=== PATIENT | female | born 1935 | race Caucasian/White ===

== ENCOUNTER 2025-06-16 13:24 | Emergency (ER) | payer MEDICARE, OTHER, SELFPAY ==
[2025-06-16] VITALS (7 sets, daily range): BP systolic 119–160; BP diastolic 69–110; PULSE 82–128; RESP 12–22; TEMP 36.5–36.6; O2SAT 91–100; BMI 29.7
--- NOTE | 2025-06-16 14:09 | RAD_ITS ---
PROCEDURE: CHEST 1 VIEW (PORTABLE) 06/16/2025 REASON FOR EXAM: CHEST PAIN Atrial fibrillation. TECHNIQUE: Frontal view of the chest. COMPARISON: None FINDINGS: Hardware: EKG electrodes are seen. Heart: Prior midline sternotomy. Lungs: Mild increased markings at the left lung base suggestive of either linear atelectasis and/or scarring. Bones: Degenerative changes are identified within the thoracic spine. Levoconvex scoliosis. Hiatal hernia. RAD/Chest 1 View (Portable) IMPRESSION: Linear atelectasis and/or scarring at the left lung base. Levoconvex scoliosis. Hiatal hernia. Reading Location: [place] [id number]
--- NOTE | 2025-06-16 14:09 | EKG12_ITS ---
Test Reason : CARDIOVERSION Blood Pressure : */* mmHG Vent. Rate : 87 BPM Atrial Rate : 87 BPM P-R Int : 186 ms QRS Dur : 88 ms QT Int : 388 ms P-R-T Axes : 58 50 69 degrees QTcB Int : 466 ms Normal sinus rhythm Nonspecific ST abnormality Abnormal ECG Confirmed by RANDI URIAS, VERITO ([id number]), editorial writer OCTAVIA ZARATE ([id number]) on 06/20/2025 6:29:38 AM Referred By: Confirmed By: VERITO BRYAN MD
--- NOTE | 2025-06-16 14:11 | EX.ED.DYSGE1 ---
HPI History of Present Illness Chief Complaint: Palpitations Informant: patient and family Narrative Narrative: Patient is an 89-year-old female with a history of dysrrhythmia and prior cardioversion, presenting with episodes of anxiety and dyspnea. - Reports intermittent anxiety and mild dyspnea this am, no chest pain or syncope/near-syncope. - Experienced an episode of anxiety and tachycardia this morning while driving to a medical appointment; symptoms subsided upon arrival but recurred during the visit, where her HR was in the 130's, so she was sent to ED. - Denies current palpitations, dyspnea, or chest discomfort (while HR is 130). - Denies abdominal pain but reports chronic bloating. - On Xarelto. - Underwent cardioversion in November 2023 for atrial fibrillation. - History of remote CABG. 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 [facility] Medical History Macular degeneration Arthritis Seasonal allergies Colon cancer Home Medications ?Medication ?Instructions ?Recorded ?Last Taken ?Type acetaminophen 325 mg capsule 650 mg PO ONCE PRN 03/10/25 Unknown History ascorbic acid (vitamin C) 1,000 mg 1,000 mg PO QDAY 03/10/25 Unknown History tablet (Vitamin C) biotin 5,000 mcg chewable tablet mcg PO DAILY 03/10/25 Unknown History hydrochlorothiazide 25 mg tablet 25 mg PO QDAY 03/10/25 Unknown History hydroxyzine HCl 25 mg tablet 12.5 - 25 mg PO TID PRN 03/10/25 Unknown History rivaroxaban 15 mg tablet (Xarelto) 15 mg PO QDAY 03/10/25 Unknown History rosuvastatin 20 mg tablet 20 mg PO QHS 03/10/25 Unknown History telmisartan 80 mg tablet 40 mg PO BID 03/10/25 Unknown History Synthroid 50 mcg tablet 50 mcg PO QDAY #90 tabs 04/18/25 Unknown Rx (levothyroxine) Allergy/AdvReac Type Severity Reaction Status Date / Time cephalexin (From Keflex) Allergy Severe Swelling Verified 06/16/25 13:32 clindamycin Allergy Severe Hives Verified 06/16/25 13:32 estrogens, conjugated Allergy Severe Anaphylaxis Verified 06/16/25 13:32 nifedipine (From Adalat) Allergy Severe Swelling Verified 06/16/25 13:32 telithromycin Allergy Severe Angioedema Verified 06/16/25 13:32 azithromycin (From Zithromax) Allergy Intermediate Diarrhea Verified 06/16/25 13:32 atorvastatin AdvReac Intermediate Other Verified 06/16/25 13:32 lovastatin AdvReac Intermediate Nausea Verified 06/16/25 13:32 escitalopram (From Lexapro) AdvReac Mild Diarrhea Verified 06/16/25 13:32 raloxifene AdvReac Mild leg cramps Verified 06/16/25 13:32 Family History Father Myocardial infarction Heart disease Hypertension Mother Heart disease Hypertension Brother Heart disease Hypertension Sister Heart disease Hypertension Surgical History H/O colectomy H/O oral surgery S/P triple vessel bypass History of cataract removal with insertion of prosthetic lens Social History adopted: No household members: other details: Independent living at [place] 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 occupational status: 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 Smoking Status: Never smoker alcohol intake: never substance use type: does not use do you feel safe at home: Yes ROS ROS ED Constitutional Constitutional ED: Denies chills or fever(s) Eyes Eyes: Denies change in vision or diplopia ENT ENT ED: Denies rhinorrhea or sore throat Cardiovascular Cardiovascular: Denies chest pain, palpitations or racing heartbeat Respiratory/Chest Respiratory/Chest: Reports dyspnea; Denies cough Gastrointestinal Gastrointestinal: Denies abdominal pain, diarrhea, nausea or vomiting Genitourinary Genitourinary ED: Denies dysuria or hematuria Musculoskeletal Musculoskeletal: Denies back pain or neck pain Integumentary Denies abscess or rash Neurologic Neurologic: Denies headache(s), paresthesias or weakness Psychiatric Psychiatric: Reports anxiety; Denies suicidal thoughts EXAM Physical Exam Const Vital Signs: 06/16/25 13:28 06/16/25 13:32 06/16/25 14:09 Temperature 97.7 F L Temperature Source Oral Pulse Rate 128 H Pulse Rate [1] Pulse Rate [2] Pulse Rate [3] Pulse Rate [4] Respiratory Rate 18 Respiratory Rate [1] Respiratory Rate [2] Respiratory Rate [3] Respiratory Rate [4] Respiratory Effort Normal Blood Pressure 151/102 H Blood Pressure [1] Blood Pressure [2] Blood Pressure [3] Blood Pressure [4] Blood Pressure Mean 118 Baseline BP Pulse Ox 99 99 Oxygen Delivery Method Room Air Room Air Oxygen Delivery Method [1] Oxygen Delivery Method [2] Oxygen Delivery Method [3] Oxygen Delivery Method [4] Oxygen Flow Rate (L/min) Oxygen Flow Rate (L/min) [1] Oxygen Flow Rate (L/min) [2] Oxygen Flow Rate (L/min) [3] Oxygen Flow Rate (L/min) [4] EtCo2 - Document during CPR and with ROSC EtCo2 - Document during CPR and with ROSC [1] EtCo2 - Document during CPR and with ROSC [2] EtCo2 - Document during CPR and with ROSC [3] EtCo2 - Document during CPR and with ROSC [4] 06/16/25 15:15 06/16/25 15:15 06/16/25 15:15 Temperature 97.9 F Temperature Source Pulse Rate 122 H 82 Pulse Rate [1] 120 H Pulse Rate [2] 82 Pulse Rate [3] 84 Pulse Rate [4] 84 Respiratory Rate 15 14 Respiratory Rate [1] 14 Respiratory Rate [2] 16 Respiratory Rate [3] 12 Respiratory Rate [4] 12 Respiratory Effort Blood Pressure 154/104 H 140/87 H Blood Pressure [1] 160/110 H Blood Pressure [2] 120/75 Blood Pressure [3] 119/69 Blood Pressure [4] 140/87 H Blood Pressure Mean Baseline BP 154/104 Pulse Ox 100 100 Oxygen Delivery Method Nasal Cannula Nasal Cannula Oxygen Delivery Method [1] Nasal Cannula Oxygen Delivery Method [2] Nasal Cannula Oxygen Delivery Method [3] Nasal Cannula Oxygen Delivery Method [4] Nasal Cannula Oxygen Flow Rate (L/min) 2 2 Oxygen Flow Rate (L/min) [1] 2 Oxygen Flow Rate (L/min) [2] 3 Oxygen Flow Rate (L/min) [3] 2 Oxygen Flow Rate (L/min) [4] 2 EtCo2 - Document during CPR and with ROSC 30 EtCo2 - Document during CPR and with ROSC [1] 48 EtCo2 - Document during CPR and with ROSC [2] 31 EtCo2 - Document during CPR and with ROSC [3] 20 EtCo2 - Document during CPR and with ROSC [4] 34 06/16/25 15:15 06/16/25 15:27 06/16/25 16:47 Temperature Temperature Source Pulse Rate 123 H 82 Pulse Rate [1] Pulse Rate [2] Pulse Rate [3] Pulse Rate [4] Respiratory Rate 22 H 12 Respiratory Rate [1] Respiratory Rate [2] Respiratory Rate [3] Respiratory Rate [4] Respiratory Effort Blood Pressure 158/105 H 131/77 H Blood Pressure [1] Blood Pressure [2] Blood Pressure [3] Blood Pressure [4] Blood Pressure Mean 122 Baseline BP Pulse Ox 99 100 Oxygen Delivery Method Room Air Room Air Oxygen Delivery Method [1] Oxygen Delivery Method [2] Oxygen Delivery Method [3] Oxygen Delivery Method [4] Oxygen Flow Rate (L/min) Oxygen Flow Rate (L/min) [1] Oxygen Flow Rate (L/min) [2] Oxygen Flow Rate (L/min) [3] Oxygen Flow Rate (L/min) [4] EtCo2 - Document during CPR and with ROSC 37 31 EtCo2 - Document during CPR and with ROSC [1] EtCo2 - Document during CPR and with ROSC [2] EtCo2 - Document during CPR and with ROSC [3] EtCo2 - Document during CPR and with ROSC [4] 06/16/25 16:51 Temperature Temperature Source Pulse Rate 82 Pulse Rate [1] Pulse Rate [2] Pulse Rate [3] Pulse Rate [4] Respiratory Rate 12 Respiratory Rate [1] Respiratory Rate [2] Respiratory Rate [3] Respiratory Rate [4] Respiratory Effort Blood Pressure 130/85 H Blood Pressure [1] Blood Pressure [2] Blood Pressure [3] Blood Pressure [4] Blood Pressure Mean 100 Baseline BP Pulse Ox 98 Oxygen Delivery Method Room Air Oxygen Delivery Method [1] Oxygen Delivery Method [2] Oxygen Delivery Method [3] Oxygen Delivery Method [4] Oxygen Flow Rate (L/min) Oxygen Flow Rate (L/min) [1] Oxygen Flow Rate (L/min) [2] Oxygen Flow Rate (L/min) [3] Oxygen Flow Rate (L/min) [4] EtCo2 - Document during CPR and with ROSC EtCo2 - Document during CPR and with ROSC [1] EtCo2 - Document during CPR and with ROSC [2] EtCo2 - Document during CPR and with ROSC [3] EtCo2 - Document during CPR and with ROSC [4] Positive well nourished and well developed General Appearance ED: well developed and NAD HEENT Reports moist mucous membranes normocephalic and atraumatic Eyes PERRL and EOMs intact bilaterally Neck full ROM and supple Resp normal respiratory effort and clear to auscultation bilaterally Cardio regular rate, regular rhythm and no murmurs Rate: tachycardic GI non-tender and non-distended Auscultation: normoactive bowel sounds Palpation: soft Back/Spine no CVA tenderness General Back: other FROM Extremity normal to inspection General Extremety ED: Negative for edema, pulses abnormal or tenderness General Extremity: Negative for edema or pulses abnormal Neuro oriented x3, CN's II-XII intact bilaterally and no sensory deficits noted Sensorium / Orientation: awake and alert Motor Exam: strength 5/5 throughout Psych mental status grossly normal Skin no rashes or lesions noted and no wounds MDM MDM MDM Narrative Medical decision making narrative: Assessment: The patient is a 89-year-old female with PMH of remote coronary artery bypass grafting, prior atrial fibrillation, and renal insufficiency presenting for symptomatic tachycardia and dyspnea. Initial ED EKG showed a regular narrow-complex tachycardia interpreted as atrial flutter with rapid ventricular response. Administration of 6 mg adenosine transiently AV-blocked the rhythm, confirming typical atrial flutter. Patient remained hemodynamically stable but persisted in flutter, so synchronized electrical cardioversion was performed under procedural sedation, restoring sinus rhythm (rate 87) with no acute ischemic changes. Mild troponin elevation (33) is attributed to rate-related demand and underlying CKD rather than acute coronary syndrome. Plan: - 6 mg adenosine IV push administered for diagnostic AV madison blockade - Procedural sedation followed by synchronized electrical cardioversion to 100 J, successful - Post-procedure monitoring in ED; patient awake, stable in sinus rhythm - Planned discharge home after full recovery from sedation and after second high-sensitivity troponin returns if flat - Outpatient cardiology follow-up arranged; referral to local pathology laboratory director initiated while maintaining current rivaroxaban therapy Diagnostics: - EKG: regular narrow-complex tachycardia consistent with atrial flutter with RVR. Independently interpreted by Miguel A weiss. - Post-cardioversion 12-lead EKG: sinus rhythm 87 bpm, no acute injury pattern. Independently interpreted by Miguel A weiss. - Labs: Troponin 33, nonsubstantially elevated; second is pending Reevaluations: - Post-adenosine: rhythm strip demonstrated flutter; patient asymptomatic, BP stable - Post-cardioversion: in sinus rhythm 87, hemodynamically stable, no chest discomfort Portions of this note were generated using voice recognition software ([employer] Dictation). I have reviewed the contents and every effort has been made to ensure accuracy; however, inadvertent errors in grammar, spelling, punctuation, or word choice may occur, that were not noted before signing the document and should not alter the intended clinical meaning. History & Record Review Discussion w/independent historian: Patient and Family Lab Data Attestation: I reviewed the patient's lab results. Labs: Laboratory Results - last 24 hr 06/16/25 13:25 WBC 9.7 RBC 4.14 L Hgb 12.5 Hct 37.8 MCV 91.3 MCH 30.2 MCHC 33.1 RDW Std Deviation 48.4 H RDW Coeff of Antwan 14.3 Plt Count 274 MPV 9.6 Immature Gran % (Auto) 0.300 Neut % (Auto) 62.6 Lymph % (Auto) 29.5 [place] % (Auto) 6.4 Eos % (Auto) 0.9 Baso % (Auto) 0.3 Absolute Neuts (auto) 6.1 Absolute Lymphs (auto) 2.86 Nucleated RBC % 0 Sodium 142 Potassium 3.7 Chloride 102 Carbon Dioxide 24.6 Anion Gap 15 BUN 36 H Creatinine 1.53 H Estim Creat Clear Calc 21.60 L Est GFR (MDRD) Non-Af 32 L BUN/Creatinine Ratio 23.7 H Glucose 108 H Calcium 9.5 Troponin T High Sens 33 H Radiography Diagnostic Testing: Clinical Impression(s) from Imaging Studies Chest X-Ray 06/16/25 14:09 IMPRESSION: Linear atelectasis and/or scarring at the left lung base. Levoconvex scoliosis. Hiatal hernia. Reading Location: [facility] Rhythm Strip Rhythm Strip: narrow complex tachycardia Rate: 130 Ectopy: None EKG Initial EKG: Attestation: I personally reviewed and interpreted this EKG as follows: Interpretation: Atrial Flutter (With RVR) Follow-up EKG: Attestation: I personally reviewed and interpreted this EKG as follows: Interpretation: Sinus Rhythm (Rate 87) and No Acute Injury Pattern Comments: Nml axis & intervals; nml EKG Procedures Procedural Sedation 1 (Initial Baseline): Consent Signed: Yes Any Problems With Anesthesia: No You/Your family experience fever (hyperthermia) w/anesthesia: No Sedation medication: Etomidate Dose: 10 Route: IV Total Moderate Sedation Units: 13 Maliampati Score: Class II ASA Classification: II Comment:: On monitor with prophylactic nasal cannula oxygenation and IV fluids, end-tidal CO2 monitoring, airway equipment at the bedside. Only complication was apnea, we watch the patient carefully, we provided neck flexion and jaw thrusting, her oxygenation remained in the 90s, she was transiently dipped down into the high 80s until she took her own breath and boosted herself back up to 97, we did turn the oxygen up temporarily but she did not require rescue breaths and eventually recovered uneventfully otherwise. Tolerated well with no other complications. Other Procedures Procedure(s): Electrocardioversion: After informed consent from patient for this time procedural sedation after being n.p.o. for 6 hours, she underwent procedural sedation as above followed by synchronized cardioversion with 30 J which was successful in converting her from atrial flutter to normal sinus rhythm at a rate of 87. Repeat EKG confirms sinus rhythm no acute injury pattern. Critical Care Time Critical Care Time: Yes Critical care time (excluding procedures): 30-74 minutes (32 min, not including procedure time), Including time spent:, Discussing w/Patient &/or Family/R D Engineer and Performing Direct Patient Care at Bedside Discharge Plan Triage Chief Complaint: Palpitations ED Provider: Miguel A Lucas Dx/Rx/DC Orders Clinical Impression: Atrial flutter with rapid ventricular response, Acute dyspnea, Anticoagulated on rivaroxaban, Stage 3a chronic kidney disease Instructions: ED Atrial Flutter Prescriptions: No Action Xarelto 15 mg tablet 15 mg PO QDAY Patient Comments: express scripts only hydrochlorothiazide 25 mg tablet 25 mg PO QDAY rosuvastatin 20 mg tablet 20 mg PO QHS hydroxyzine HCl 25 mg tablet 12.5 - 25 mg PO TID PRN ascorbic acid (vitamin C) [Vitamin C] 1,000 mg tablet 1,000 mg PO QDAY acetaminophen 325 mg capsule 650 mg PO ONCE PRN biotin 5,000 mcg tablet,chewable PO DAILY telmisartan 80 mg tablet 40 mg PO BID levothyroxine [Synthroid] 50 mcg tablet 50 mcg PO QDAY Qty: 90 0RF Primary Care Provider: Bella Huntley Referrals: your pathology laboratory director [Other] - As soon as possible Bella Huntley MD [Primary Care Provider, Internal Medicine] Tomi Canales MD [Med Staff - Active Staff, Cardiology] Print Language: Yakut Disposition Disposition: Home, Self Care
[2025-06-16 14:26] LABS: Hematocrit 37.8 % (37-47); Hemoglobin 12.5 g/dL (12.0-15.0); Immature Granulocytes Count 0.030 X10^3/uL (0.0-0.0); Mean Corp Hgb Conc 33.1 g/dL (32-36); Mean Corpuscular Volume 91.3 fL (81-99); Mean Platelet Vol. 9.6 fl (6.2-12.0); NRBC Flagged by Analyzer 0 % (0-5); Platelet Count 274 K/mm3 (150-450); RBC Distribution Width CV 14.3 % (11.6-14.6); RBC Distribution Width SD 48.4 fl (35.1-43.9); Red Blood Count 4.14 M/mm3 (4.2-5.4); White Blood Count 9.7 K/mm3 (4.4-11.0)
[2025-06-16] MEDS: 0.9% Normal Saline (1000mL) 1,000 ML 999 ML IV (14:47)
[2025-06-16 14:48] LABS: Anion Gap 15 (5-15); BUN 36 mg/dL (4-19); BUN/Creat Ratio 23.7 RATIO (10-20); Calcium,Total 9.5 mg/dL (7.6-11.0); Carbon Dioxide 24.6 mmol/L (21.0-32.0); Chloride 102 mmol/L (98-108); Estimated Creatinine Clearance 21.60 ml/min (50-250); Glucose 108 mg/dL (70-99); Potassium 3.7 mmol/L (3.3-5.1); Troponin T High Sensitivity 33 ng/L (<=14)
[2025-06-16] MEDS: Adenosine 6 MG/2 ML Syringe IV (14:58)
[2025-06-16] MEDS: fentaNYL 100 MCG/2 ML Ampul 50 MCG IV (15:54)
[2025-06-16] MEDS: fentaNYL 100 MCG/2 ML Ampul 25 MCG IV (16:27)
--- NOTE | 2025-06-16 16:51 | EKG12_ITS ---
Test Reason : PALPS Blood Pressure : */* mmHG Vent. Rate : 123 BPM Atrial Rate : 246 BPM P-R Int : * ms QRS Dur : 84 ms QT Int : 342 ms P-R-T Axes : 262 49 66 degrees QTcB Int : 489 ms Atrial flutter with 2:1 A-V conduction Nonspecific ST and T wave abnormality Abnormal ECG Confirmed by RANDI URIAS, VERITO ([id number]), art editor OCTAVIA ZARATE ([id number]) on 06/20/2025 6:29:53 AM Referred By: BISMARK Confirmed By: VERITO BRYAN MD
[2025-06-16 18:16] LABS: Troponin T High Sens 2 HR 30 ng/L (<=14)
[2025-06-16 19:16] LABS: Troponin T High Sens 4 HR 32 ng/L (<=14)
== END 2025-06-16 18:33 | disposition home or self-care (01) ==
PROVIDERS: Emergency Provider Emergency Medicine; PCP Internal Medicine; Visit Provider Emergency Medicine
DX: I48.91 Unspecified atrial fibrillation (principal); N18.31 Chronic kidney disease, stage 3a; Z95.1 Presence of aortocoronary bypass graft; F41.9 Anxiety disorder, unspecified; Z79.01 Long term (current) use of anticoagulants; R06.00 Dyspnea, unspecified
CPT/HCPCS: 71045; 80048; 84484; 85025; 92960; 93005; 96361; 96374; 96375; 96376; 99285; A4216; J0153; J2405

== ENCOUNTER → 2025-06-20 | Outpatient (CLI) | payer MEDICARE, OTHER, SELFPAY ==
[2025-06-20 16:33] LABS: Free T3 2.3 pg/mL (2.18-3.98)
== END | disposition home or self-care (01) ==
LOC: CIMLAB 13:32
PROVIDERS: Nurse Practitioner Family; PCP Internal Medicine; Referring Provider Internal Medicine; Visit Provider Internal Medicine
DX: E03.9 Hypothyroidism, unspecified (principal)
CPT/HCPCS: 36415; 84439; 84443; 84481